=== PATIENT | male | born 1965 | race African-American/Black ===

== ENCOUNTER 2016-07-31 08:41 | Inpatient (IN) | payer OTHER ==
[2016-07-31 10:13] VITALS: BMI 22.1
--- NOTE | 2016-07-31 13:49 | HP ---
CIWA Score - CIWA Score Nausea/Vomitin-No Nausea/No Vomiting Muscle Tremors: 4-Moderate,w/Arms Extend Anxiety: 4-Mod. Anxious/Guarded Agitation: 3 Paroxysmal Sweats: 1-Minimal Palms Moist Orientation: 0-Oriented Tacttile Disturbances: 3-Moderate Itch/Numb/Burn Auditory Disturbances: 0-None Visual Disturbances: 0-None Headache: 0-None Present CIWA-Ar Total Score: 15 Admission ROS BHS - HPI Chief Complaint: DETOX TX FOR ALCOHOL DEPENDENCE Allergies/Adverse Reactions: Allergies Allergy/AdvReac Type Severity Reaction Status Date / Time No Known Allergies Allergy Unverified 07/31/16 10:52 History of Present Illness: 51 Y/O AA/MALE WITH A HX OF ALCOHOL AND CRACK DEPENDENCE SEEKING DETOX TX Exam Limitations: No Limitations - Ebola screening Have you traveled outside of the country in the last 21 days: No Have you had contact with anyone from an Ebola affected area: No Have you been sick,other than usual withdrawal symptoms: No Do you have a fever: No - Review of Systems Constitutional: Night Sweats, Changes in sleep, Unintentional Wgt. 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) Respiratory: reports: No Symptoms reported Cardiac: reports: Lightheadedness GI: reports: Diarrhea, Poor Fluid Intake : reports: Frequency Musculoskeletal: reports: Muscle Pain Integumentary: reports: Dryness Neuro: reports: Tremors, Dizziness Endocrine: reports: No Symptoms Reported Hematology: reports: No Symptoms Reported Psychiatric: reports: Orientated x3, Anxious Other Systems: Reviewed and Negative Patient History - Patient Medical History Hx Anemia: No Hx Asthma: No Hx Chronic Obstructive Pulmonary Disease (COPD): No Hx Cardiac Disorders: No Hx Hypertension: No Hx Hypercholesterolemia: No HX Cerebrovascular Accident: No Hx Seizures: No Hx Diabetes: No Hx Gastrointestinal Disorders: No Hx Genitourinary Disorders: No Hx Sexually Transmitted Disorders: No (DENIES) Hx Renal Disease (ESRD): No Hx Thyroid Disease: No Hx Human Immunodeficiency Virus (HIV): No (NEGATIVE HX) Hx Hepatitis C: No Hx Depression: No Hx Suicide Attempt: No (DENIES) Hx Bipolar Disorder: No Hx Schizophrenia: No - Patient Surgical History Past Surgical History: Yes Hx Neurologic Surgery: No Hx Cataract Extraction: No Hx Cardiac Surgery: No Hx Lung Surgery: No Hx Breast Surgery: No Hx Breast Biopsy: No Hx Abdominal Surgery: No Hx Appendectomy: No Hx Cholecystectomy: No Hx Genitourinary Surgery: No Hx Section: No Hx Orthopedic Surgery: No Hx Hysterectomy: No Other Surgical History: left eye sx at age 33 Anesthesia Reaction: No - PPD History Previous Implant?: Yes Documented Results: Negative w/o proof Implanted On Prior [facility] Admission?: Yes Date: 10/20/15 Results: 0 mm PPD to be Administered?: Yes - Reproductive History Patient is a Female of Child Bearing Age (11 -55 yrs old): No (MALE) - Smoking Cessation Smoking history: Current every day smoker Have you smoked in the past 12 months: Yes Aproximately how many cigarettes per day: 5 Cigars Per Day: 4 Hx Chewing Tobacco Use: No Initiated information on smoking cessation: Yes 'Breaking Loose' booklet given: 07/31/16 - Substance & Tx. History Hx Alcohol Use: Yes (BEER) Hx Substance Use: (CRACK) Substance Use Type: Alcohol, Cocaine - Substances Abused Alcohol Route: Oral Frequency: Daily Amount used: 5 40 OZ BEERS Age of first use: 21 Date of Last Use: 07/31/16 Crack Route: Smoking Frequency: Daily Amount used: $30 Age of first use: 19 Date of Last Use: 07/31/16 Family Disease History - Family Disease History Family Disease History: CA: Father (PROSTATE) Admission Physical Exam BHS - Vital Signs Vital Signs: Vital Signs - 24 hr 07/31/16 10:10 Temperature 97.0 F L Pulse Rate 103 H Respiratory 18 Rate Blood Pressure 109/70 - Physical General Appearance: Yes: Moderate Distress, Alcohol on Breath, Irritable, Anxious HEENTM: Yes: EOMI, Normocephalic, MARCELL (RIGHT EYE), Pharynx Normal, Excessive Drooling, Other (CHRONIC TRUAMATIC LEFT EYE. BLIND.) Respiratory: Yes: Chest Non-Tender, Lungs Clear, Normal Breath Sounds, No Respiratory Distress Neck: Yes: Supple, Trachea in good position Breast: Yes: Breast Exam Deferred Cardiology: Yes: Regular Rhythm, Regular Rate, S1, S2 Abdominal: Yes: Normal Bowel Sounds, Non Tender, Soft Genitourinary: Yes: Other (N/C) Back: Yes: Within Normal Limits Musculoskeletal: Yes: full range of Motion, Gait Steady Extremities: Yes: Normal Range of Motion, Non-Tender Neurological: Yes: industrial engineering technician II-XII NML intact, Fully Oriented, Alert Integumentary: Yes: Dry, Warm Lymphatic: Yes: Within Normal Limits - Diagnostic (1) Alcohol dependence with uncomplicated withdrawal Current Visit: Yes Status: Acute (2) Cocaine dependence, uncomplicated Current Visit: Yes Status: Acute (3) 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
[2016-07-31] MEDS ORDERED: MAG HYDROX/AL HYDROX/SIMETH 30 ML UNIT-DOSE CUP PO PRN (14:00)
[2016-07-31] MEDS ORDERED: MAGNESIUM HYDROX 2400MG/30ML ORAL SUSPENSION 30 ML CUP PO PRN (14:00)
[2016-07-31] MEDS ORDERED: chlordiazePOXIDE HCL 25 MG CAPSULE PO PRN (14:00)
[2016-07-31] MEDS ORDERED: MENTHOL/PHENOL 1 EACH UD MM PRN (14:00)
[2016-07-31] MEDS ORDERED: LOPERAMIDE HCL 2 MG CAPSULE PO PRN (14:00)
[2016-07-31] MEDS ORDERED: hydrOXYzine PAMOATE 25 MG CAPSULE (FP) PO PRN (14:00)
[2016-07-31] MEDS ORDERED: MAGNESIUM CITRATE 300 ML BOTTLE PO PRN (14:00)
[2016-07-31] MEDS ORDERED: NICOTINE POLACRILEX 2 MG GUM BUC PRN (14:00)
[2016-07-31] MEDS ORDERED: IBUPROFEN 400 MG TABLET (FP) PO PRN (14:00)
[2016-07-31] MEDS ORDERED: ACETAMINOPHEN 325 MG TABLET (FP) PO PRN (14:00)
[2016-07-31] MEDS ORDERED: guaiFENesin/D-METHORPHAN HB 10 ML UNIT-DOSE CUPS PO PRN (14:00)
[2016-07-31] MEDS ORDERED: P-EPHED 60MG/TRIPROLIDI 2.5MG TABLET PO PRN (14:00)
[2016-07-31] MEDS ORDERED: chlordiazePOXIDE HCL 25 MG CAPSULE PO ONE (14:08)
[2016-07-31] MEDS: NICOTINE 14 MG/24 HOURS TOPICAL PATCH TD SCH (14:43)
[2016-07-31] MEDS: chlordiazePOXIDE HCL 25 MG CAPSULE PO SCH ×2 (17:24→22:18)
[2016-07-31 17:31] LABS: URINE APPEARANCE CLEAR; URINE BILIRUBIN NEGATIVE (NEGATIVE); URINE COLOR YELLOW; URINE GLUCOSE (UA) NEGATIVE (NEGATIVE); URINE KETONE NEGATIVE (NEGATIVE); URINE NITRITE NEGATIVE (NEGATIVE); URINE PROTEIN NEGATIVE (NEGATIVE); URINE UROBILINOGEN NEGATIVE E.U./dl (0.2-1.0)
[2016-07-31 17:34] LABS: URINE BLOOD 1+ (NEGATIVE); URINE LEUK ESTERASE 2+ (NEGATIVE)
[2016-07-31 17:35] LABS: URINE HYALINE CAST 6 /lpf; URINE MUCUS FEW; URINE RBC 3 /hpf (0-3); URINE WBC 11 /hpf (3-5)
[2016-07-31] MEDS: ARTIFICIAL TEARS (POLYVINYL ALCOHOL 1.4%) OPTH DROPS OU SCH (22:17)
[2016-07-31] MEDS: THIAMINE HCL 100 MG TABLET (FP) PO SCH (22:18)
[2016-07-31] MEDS: diphenhydrAMINE HCL 50 MG CAPSULE PO PRN (22:18)
[2016-08-01] MEDS: chlordiazePOXIDE HCL 25 MG CAPSULE PO SCH ×4 (05:32→22:15)
[2016-08-01] MEDS: ARTIFICIAL TEARS (POLYVINYL ALCOHOL 1.4%) OPTH DROPS OU SCH ×3 (05:33→22:14)
[2016-08-01 09:53] LABS: MCHC 32.3 g/dl (32.0-35.9); MEAN CELL VOLUME 95.8 fl (80-96); MEAN PLT VOLUME 8.5 fl (7.5-11.1); PLATELET COUNT 235 K/MM3 (134-434); RDW 15.2 % (11.9-15.9); WHITE BLOOD COUNT 3.5 K/mm3 (4.0-10.0)
--- NOTE | 2016-08-01 10:02 | PN ---
S CIWA - CIWA Score Nausea/Vomitin Muscle Tremors: 4-Moderate,w/Arms Extend Anxiety: 4-Mod. Anxious/Guarded Agitation: 3 Paroxysmal Sweats: 3 Orientation: 0-Oriented Tacttile Disturbances: 0-None Auditory Disturbances: 0-None Visual Disturbances: 0-None Headache: 0-None Present CIWA-Ar Total Score: 16 BHS Progress Note (SOAP) Subjective: Anxiety,tremors,sweating,interrupted sleep,restless. Objective: 08/01/16 09:56 Vital Signs - 8 hr 08/01/16 08/01/16 08/01/16 03:30 06:12 09:17 Temperature 97.2 F L 96.7 F L Pulse Rate 80 76 Respiratory 18 18 18 Rate Blood Pressure 128/94 134/92 Laboratory Last Values Urine Color Yellow 07/31/16 15:00 Urine Appearance Clear 07/31/16 15:00 Urine pH 5.0 (5.0-8.0) 07/31/16 15:00 Ur Specific [place] >= 1.030 (1.005-1.025) H 07/31/16 15:00 Urine Protein Negative (NEGATIVE) 07/31/16 15:00 Urine Glucose (UA) Negative (NEGATIVE) 07/31/16 15:00 Urine Ketones Negative (NEGATIVE) 07/31/16 15:00 Urine Blood 1+ (NEGATIVE) H 07/31/16 15:00 Urine Nitrite Negative (NEGATIVE) 07/31/16 15:00 Urine Bilirubin Negative (NEGATIVE) 07/31/16 15:00 Urine Urobilinogen Negative E.U./dl (0.2-1.0) 07/31/16 15:00 Ur Leukocyte Esterase 2+ (NEGATIVE) H 07/31/16 15:00 Urine RBC 3 /hpf (0-3) 07/31/16 15:00 Urine WBC 11 /hpf (3-5) 07/31/16 15:00 Ur Epithelial Cells Rare /hpf (FEW) 07/31/16 15:00 Hyaline Casts 6 /lpf 07/31/16 15:00 Urine Mucus Few 07/31/16 15:00 u/a noted,we'll repeat Left eye with yellowish d/c,inflammation & redness of palpebral conjunctiva Assessment: 08/01/16 09:57 Withdrawal sx. Acute Conjunctivitis OS Plan: Continue detox tobrex ophth. helena qid maxitrol hs
[2016-08-01] MEDS: NICOTINE 14 MG/24 HOURS TOPICAL PATCH TD SCH (10:23)
[2016-08-01] MEDS: PRENATAL VITAMINS W/ FOLIC ACID TABLET (FP) PO SCH (10:23)
[2016-08-01 10:42] LABS: ALBUMIN 4.3 g/dl (3.4-5.0); ALK PHOS 85 U/L (45-117); ANION GAP 12 (8-16); BILIRUBIN,TOTAL 0.3 mg/dL (0.2-1.0); CALCIUM 9.6 mg/dL (8.5-10.1); CO2 24 mmol/L (21-32); COCKROFT - GAULT 91.97; CREATININE 0.9 mg/dL (0.7-1.3); GLUCOSE,RANDOM 79 mg/dL (74-106); SGOT/AST 27 U/L (15-37); SGPT/ALT 25 U/L (12-78); TOT PROT 8.3 g/dl (6.4-8.2)
[2016-08-01] MEDS: TOBRAMYCIN 0.3% OPHTH SOLN 5 ML BOTTLE OS SCH ×4 (11:00→22:15)
--- NOTE | 2016-08-01 11:00 | EKG ---
Test Reason : Blood Pressure : / mmHG Vent. Rate : 084 BPM Atrial Rate : 084 BPM P-R Int : 158 ms QRS Dur : 096 ms QT Int : 364 ms P-R-T Axes : 069 071 066 degrees QTc Int : 430 ms NORMAL SINUS RHYTHM NONSPECIFIC T WAVE ABNORMALITY ABNORMAL ECG NO PREVIOUS ECGS AVAILABLE Confirmed by ARJUN ORDOÑEZ, TIAN ([id number]) on 08/01/2016 10:59:51 AM Referred By: Mushtaq Horner Confirmed By:TIAN DÍAZ MD
[2016-08-01] MEDS: THIAMINE HCL 100 MG TABLET (FP) PO SCH (22:14)
[2016-08-01] MEDS: NEO/POLYMYX B SULF/DEXAMETH OPHTHALMIC OINTMENT 3.5 GM OS SCH (22:15)
[2016-08-01] MEDS: diphenhydrAMINE HCL 50 MG CAPSULE PO PRN (22:15)
[2016-08-02] MEDS: diphenhydrAMINE HCL 50 MG CAPSULE PO PRN ×2 (00:54→22:25)
[2016-08-02] MEDS: chlordiazePOXIDE HCL 25 MG CAPSULE PO SCH ×2 (05:39→10:27)
[2016-08-02] MEDS: ARTIFICIAL TEARS (POLYVINYL ALCOHOL 1.4%) OPTH DROPS OU SCH ×3 (05:39→22:24)
[2016-08-02] MEDS: TOBRAMYCIN 0.3% OPHTH SOLN 5 ML BOTTLE OS SCH ×4 (10:27→22:24)
[2016-08-02] MEDS: PRENATAL VITAMINS W/ FOLIC ACID TABLET (FP) PO SCH (10:27)
[2016-08-02] MEDS: NICOTINE 14 MG/24 HOURS TOPICAL PATCH TD SCH (10:28)
--- NOTE | 2016-08-02 11:52 | PN ---
[facility] CIWA - CIWA Score Nausea/Vomitin-Mild Nausea/No Vomiting Muscle Tremors: 4-Moderate,w/Arms Extend Anxiety: 2 Agitation: 1-Slight > Activity Paroxysmal Sweats: No Perspiration Orientation: 0-Oriented Tacttile Disturbances: 1-Very Mild Itch/Numbness Auditory Disturbances: 2-Mild Harshness/Frighten Visual Disturbances: 3-Moderate Sensitivity Headache: 0-None Present CIWA-Ar Total Score: 14 S Progress Note (SOAP) Subjective: Body Aches, Tremors, Fatigue, Interrupted sleep. Objective: PT. A & O X 3. NO ACUTE DISTRESS. 08/02/16 11:48 Vital Signs Temperature 96.8 F L 08/02/16 09:20 Pulse Rate 79 08/02/16 09:20 Respiratory Rate 18 08/02/16 09:20 Blood Pressure 121/83 08/02/16 09:20 O2 Sat by Pulse Oximetry (%) Laboratory Tests 07/31/16 08/01/16 08/01/16 15:00 06:00 06:00 WBC 3.5 L D RBC 4.43 Hgb 13.7 D Hct 42.4 D MCV 95.8 MCHC 32.3 RDW 15.2 Plt Count 235 D MPV 8.5 Sodium 138 Potassium 3.6 D Chloride 102 Carbon Dioxide 24 Anion Gap 12 BUN 11 D Creatinine 0.9 Creat Clearance w eGFR > 60 Random Glucose 79 Calcium 9.6 Total Bilirubin 0.3 D AST 27 D ALT 25 Alkaline Phosphatase 85 Total Protein 8.3 H Albumin 4.3 Urine Color Yellow Urine Appearance Clear Urine pH 5.0 Ur Specific [place] >= 1.030 H Urine Protein Negative Urine Glucose (UA) Negative Urine Ketones Negative Urine Blood 1+ H Urine Nitrite Negative Urine Bilirubin Negative Urine Urobilinogen Negative Ur Leukocyte Esterase 2+ H Urine RBC 3 Urine WBC 11 Ur Epithelial Cells Rare Hyaline Casts 6 Urine Mucus Few RPR Titer 08/01/16 06:00 WBC RBC Hgb Hct MCV MCHC RDW Plt Count MPV Sodium Potassium Chloride Carbon Dioxide Anion Gap BUN Creatinine Creat Clearance w eGFR Random Glucose Calcium Total Bilirubin AST ALT Alkaline Phosphatase Total Protein Albumin Urine Color Urine Appearance Urine pH Ur Specific [place] Urine Protein Urine Glucose (UA) Urine Ketones Urine Blood Urine Nitrite Urine Bilirubin Urine Urobilinogen Ur Leukocyte Esterase Urine RBC Urine WBC Ur Epithelial Cells Hyaline Casts Urine Mucus RPR Titer Nonreactive LABS NOTED. Assessment: 08/02/16 11:49 WITHDRAWAL SYMPTOMS. Plan: CONTINUE DETOX. REPEAT UA FOR ABNORMAL ADMISSION UA LEVELS.
[2016-08-02] MEDS: chlordiazePOXIDE 5 MG CAPSULE PO SCH ×2 (17:15→22:24)
[2016-08-02 17:51] LABS: URINE APPEARANCE CLEAR; URINE BILIRUBIN NEGATIVE (NEGATIVE); URINE BLOOD NEGATIVE (NEGATIVE); URINE COLOR STRAW; URINE GLUCOSE (UA) NEGATIVE (NEGATIVE); URINE KETONE NEGATIVE (NEGATIVE); URINE NITRITE NEGATIVE (NEGATIVE); URINE PROTEIN NEGATIVE (NEGATIVE); URINE UROBILINOGEN NEGATIVE E.U./dl (0.2-1.0)
[2016-08-02 17:52] LABS: URINE LEUK ESTERASE TRACE (NEGATIVE)
[2016-08-02 17:56] LABS: URINE MUCUS RARE; URINE RBC <1 /hpf (0-3); URINE WBC 4 /hpf (3-5)
[2016-08-02] MEDS: NEO/POLYMYX B SULF/DEXAMETH OPHTHALMIC OINTMENT 3.5 GM OS SCH (22:24)
[2016-08-02] MEDS: THIAMINE HCL 100 MG TABLET (FP) PO SCH (22:24)
[2016-08-03] MEDS: chlordiazePOXIDE 5 MG CAPSULE PO SCH ×2 (05:30→10:37)
[2016-08-03] MEDS: ARTIFICIAL TEARS (POLYVINYL ALCOHOL 1.4%) OPTH DROPS OU SCH ×3 (05:30→22:18)
[2016-08-03] MEDS ORDERED: BACITRACIN 30 GM TUBE TOPICAL OINTMENT TP SCH (10:00)
[2016-08-03] MEDS: PRENATAL VITAMINS W/ FOLIC ACID TABLET (FP) PO SCH (10:37)
[2016-08-03] MEDS: TOBRAMYCIN 0.3% OPHTH SOLN 5 ML BOTTLE OS SCH ×4 (10:38→22:18)
[2016-08-03] MEDS: NICOTINE 14 MG/24 HOURS TOPICAL PATCH TD SCH (10:39)
[2016-08-03] MEDS: BACITRACIN 0.9 GM PACKET TP SCH ×2 (13:10→22:18)
--- NOTE | 2016-08-03 14:26 | PN ---
BHS Progress Note (SOAP) Subjective: Tremors, Fatigue. Objective: PT. A & O X 3. NO ACUTE DISTRESS. 08/03/16 14:24 Vital Signs Temperature 97.1 F L 08/03/16 13:11 Pulse Rate 86 08/03/16 13:11 Respiratory Rate 18 08/03/16 13:11 Blood Pressure 113/82 08/03/16 13:11 O2 Sat by Pulse Oximetry (%) Laboratory Tests 07/31/16 08/01/16 08/01/16 15:00 06:00 06:00 WBC 3.5 L D RBC 4.43 Hgb 13.7 D Hct 42.4 D MCV 95.8 MCHC 32.3 RDW 15.2 Plt Count 235 D MPV 8.5 Sodium 138 Potassium 3.6 D Chloride 102 Carbon Dioxide 24 Anion Gap 12 BUN 11 D Creatinine 0.9 Creat Clearance w eGFR > 60 Random Glucose 79 Calcium 9.6 Total Bilirubin 0.3 D AST 27 D ALT 25 Alkaline Phosphatase 85 Total Protein 8.3 H Albumin 4.3 Urine Color Yellow Urine Appearance Clear Urine pH 5.0 Ur Specific [place] >= 1.030 H Urine Protein Negative Urine Glucose (UA) Negative Urine Ketones Negative Urine Blood 1+ H Urine Nitrite Negative Urine Bilirubin Negative Urine Urobilinogen Negative Ur Leukocyte Esterase 2+ H Urine RBC 3 Urine WBC 11 Ur Epithelial Cells Rare Hyaline Casts 6 Urine Mucus Few RPR Titer 08/01/16 08/02/16 06:00 17:32 WBC RBC Hgb Hct MCV MCHC RDW Plt Count MPV Sodium Potassium Chloride Carbon Dioxide Anion Gap BUN Creatinine Creat Clearance w eGFR Random Glucose Calcium Total Bilirubin AST ALT Alkaline Phosphatase Total Protein Albumin Urine Color Straw Urine Appearance Clear Urine pH 7.0 D Ur Specific [place] 1.020 Urine Protein Negative Urine Glucose (UA) Negative Urine Ketones Negative Urine Blood Negative Urine Nitrite Negative Urine Bilirubin Negative Urine Urobilinogen Negative Ur Leukocyte Esterase Trace H D Urine RBC <1 Urine WBC 4 Ur Epithelial Cells Rare Hyaline Casts Urine Mucus Rare RPR Titer Nonreactive LABS NOTED. RESULTS OF REPEAT UA NOTED. 08/03/16 14:26 Assessment: 08/03/16 14:25 WITHDRAWAL SYMPTOMS. Plan: CONTINUE DETOX. ADVISED PATIENT TO FOLLOW-UP WITH MUSIC WORKER AFTER DISCHARGE FROM DETOX FOR GENERAL MEDICAL ASSESSMENT AND FOR LOW ADMISSION WBC LEVEL.
[2016-08-03] MEDS: chlordiazePOXIDE HCL 10 MG CAPSULE PO SCH ×2 (17:22→22:19)
[2016-08-03] MEDS: NEO/POLYMYX B SULF/DEXAMETH OPHTHALMIC OINTMENT 3.5 GM OS SCH (22:18)
[2016-08-03] MEDS: THIAMINE HCL 100 MG TABLET (FP) PO SCH (22:18)
[2016-08-03] MEDS: diphenhydrAMINE HCL 50 MG CAPSULE PO PRN (22:19)
[2016-08-04] MEDS: chlordiazePOXIDE HCL 10 MG CAPSULE PO SCH (05:24)
[2016-08-04 06:11] VITALS: BP 112/77; PULSE 87; TEMP 97.5
[2016-08-04] MEDS: ARTIFICIAL TEARS (POLYVINYL ALCOHOL 1.4%) OPTH DROPS OU SCH (07:19)
--- NOTE | 2016-08-04 11:21 | DS ---
[facility] Detox Discharge Summary Admission Date: 07/31/16 Discharge Date: 08/04/16 - History Present History: Alcohol Dependence, Cocaine Dependence Additional Comments: ADVISED PATIENT TO FOLLOW-UP WITH FULL STACK SOFTWARE ENGINEER AFTER DISCHARGE FROM DETOX FOR GENERAL MEDICAL ASSESSMENT. Pertinent Past History: Blindness in Left eye. - Physical Exam Results Vital Signs: Vital Signs Temperature 97.5 F L 08/04/16 06:10 Pulse Rate 87 08/04/16 06:10 Respiratory Rate 18 08/04/16 06:10 Blood Pressure 112/77 08/04/16 06:10 O2 Sat by Pulse Oximetry (%) Pertinent Admission Physical Exam Findings: WITHDRAWAL SYMPTOMS. Laboratory Tests 07/31/16 08/01/16 08/01/16 15:00 06:00 06:00 WBC 3.5 L D RBC 4.43 Hgb 13.7 D Hct 42.4 D MCV 95.8 MCHC 32.3 RDW 15.2 Plt Count 235 D MPV 8.5 Sodium 138 Potassium 3.6 D Chloride 102 Carbon Dioxide 24 Anion Gap 12 BUN 11 D Creatinine 0.9 Creat Clearance w eGFR > 60 Random Glucose 79 Calcium 9.6 Total Bilirubin 0.3 D AST 27 D ALT 25 Alkaline Phosphatase 85 Total Protein 8.3 H Albumin 4.3 Urine Color Yellow Urine Appearance Clear Urine pH 5.0 Ur Specific [place] >= 1.030 H Urine Protein Negative Urine Glucose (UA) Negative Urine Ketones Negative Urine Blood 1+ H Urine Nitrite Negative Urine Bilirubin Negative Urine Urobilinogen Negative Ur Leukocyte Esterase 2+ H Urine RBC 3 Urine WBC 11 Ur Epithelial Cells Rare Hyaline Casts 6 Urine Mucus Few RPR Titer 08/01/16 08/02/16 06:00 17:32 WBC RBC Hgb Hct MCV MCHC RDW Plt Count MPV Sodium Potassium Chloride Carbon Dioxide Anion Gap BUN Creatinine Creat Clearance w eGFR Random Glucose Calcium Total Bilirubin AST ALT Alkaline Phosphatase Total Protein Albumin Urine Color Straw Urine Appearance Clear Urine pH 7.0 D Ur Specific [place] 1.020 Urine Protein Negative Urine Glucose (UA) Negative Urine Ketones Negative Urine Blood Negative Urine Nitrite Negative Urine Bilirubin Negative Urine Urobilinogen Negative Ur Leukocyte Esterase Trace H D Urine RBC <1 Urine WBC 4 Ur Epithelial Cells Rare Hyaline Casts Urine Mucus Rare RPR Titer Nonreactive LABS NOTED. - Treatment Hospital Course: Detox Protocol Followed, Detoxed Safely, Responded well, Discharged Condition Good Patient has Accepted a Rehab Referral to: PATIENT ELECITNG TO GO HOME. 12-STEP/ AA/NA OUTPATIENT PROGRAMS RECOMMENDED. - Medication Discharge Medications: Ambulatory Orders Dextran 70/Hypromellose [Artificial Tears Eye Drops] 1 drop OP QID 12/07/15 - Diagnosis (1) Alcohol dependence with uncomplicated withdrawal Status: Acute (2) Cocaine dependence, uncomplicated Status: Acute (3) Nicotine dependence Status: Chronic Qualifiers: Nicotine product type: cigarettes Substance use status: in withdrawal Qualified Code(s): F17.213 - Nicotine dependence, cigarettes, with withdrawal (4) Blindness of left eye Status: Chronic - AMA Did Patient Leave Against Medical Advice: No
== END 2016-08-04 09:20 | disposition home or self-care (01) | DRG 774 ==
LOC: YASAS 08:41 → Y3N 13:46
PROVIDERS: ADMIT Internal Medicine; ATTEND Internal Medicine
PROC: HZ2ZZZZ Detoxification Services for Substance Abuse Treatment (ICD-10-PCS; principal; 2016-07-31)
DX: F10.230 Alcohol dependence with withdrawal, uncomplicated (principal); F14.20 Cocaine dependence, uncomplicated; F17.213 Nicotine dependence, cigarettes, with withdrawal; H54.42 Blindness, left eye, normal vision right eye; H10.32 Unspecified acute conjunctivitis, left eye
CPT/HCPCS: 36415; 80053; 81003; 81015; 85027; 86593; 93005; 93010

== ENCOUNTER 2020-10-05 09:21 | Inpatient (IN) | payer OTHER ==
[2020-10-05 09:51] VITALS: BMI 22.3
[2020-10-05] MEDS ORDERED: ACETAMINOPHEN 325 MG TABLET (FP) PO PRN ×2 (11:41)
[2020-10-05] MEDS ORDERED: MENTHOL/PHENOL 1 EACH UD MM PRN (11:41)
[2020-10-05] MEDS ORDERED: ONDANSETRON *ODT* 4 MG TABLET SL PRN (11:41)
[2020-10-05] MEDS ORDERED: BISMUTH SUBSALICYLATE 262 MG/15 ML BTL PO PRN (11:41)
[2020-10-05] MEDS ORDERED: MAGNESIUM HYDROX 2400MG/30ML ORAL SUSPENSION 30 ML CUP PO PRN (11:41)
[2020-10-05] MEDS ORDERED: IBUPROFEN 400 MG TABLET (FP) PO PRN (11:41)
[2020-10-05] MEDS ORDERED: METHOCARBAMOL 500 MG TABLET PO PRN (11:41)
[2020-10-05] MEDS ORDERED: MAG HYDROX/AL HYDROX/SIMETH 30 ML UNIT-DOSE CUP PO PRN (11:41)
[2020-10-05] MEDS ORDERED: NICOTINE 10 MG CARTRIDGE (INHALER) IH PRN (11:41)
[2020-10-05] MEDS ORDERED: MAGNESIUM CITRATE 300 ML BOTTLE PO PRN (11:41)
[2020-10-05] MEDS: hydrOXYzine PAMOATE 25 MG CAPSULE (FP) PO SCH ×4 (14:34→22:17)
[2020-10-05] MEDS: PRENATAL VITAMINS W/ FOLIC ACID TABLET (FP) PO SCH ×2 (14:34→14:47)
[2020-10-05] MEDS: ARTIFICIAL TEARS (POLYVINYL ALCOHOL) OPTH DROPS OU SCH ×3 (14:39→22:17)
[2020-10-05 15:28] LABS: ALBUMIN 3.6 g/dl (3.4-5.0); BLOOD UREA NITROGEN 18.7 mg/dL (7-18); CALCIUM 9.3 mg/dL (8.5-10.1)
[2020-10-05 15:31] LABS: CREATININE 0.9 mg/dL (0.55-1.3)
[2020-10-05 15:33] LABS: BILIRUBIN,TOTAL 0.2 mg/dL (0.2-1); TOT PROT 7.3 g/dl (6.4-8.2)
[2020-10-05 15:39] LABS: HEMATOCRIT 37.5 % (35.4-49); HEMOGLOBIN 12.7 GM/dL (11.7-16.9); MCH 32.3 pg (25.7-33.7); MCHC 33.8 g/dl (32.0-35.9); MEAN CELL VOLUME 95.6 fl (80-96); MEAN PLT VOLUME 8.3 fl (7.5-11.1); PLATELET COUNT 255 10^3/uL (134-434); RBC 3.92 M/mm3 (4.00-5.60); RDW 15.3 % (11.9-15.9); WHITE BLOOD COUNT 4.2 K/mm3 (4.0-10.0)
[2020-10-05] MEDS: THIAMINE HCL 100 MG TABLET (FP) PO SCH (22:17)
[2020-10-05] MEDS: MELATONIN 5 MG TABLETS PO SCH (22:17)
[2020-10-06] MEDS: hydrOXYzine PAMOATE 25 MG CAPSULE (FP) PO SCH ×5 (05:04→22:16)
[2020-10-06] MEDS ORDERED: diazePAM 5 MG TABLET PO PRN (09:46)
[2020-10-06] MEDS: ARTIFICIAL TEARS (POLYVINYL ALCOHOL) OPTH DROPS OU SCH ×4 (10:13→22:15)
[2020-10-06] MEDS: PRENATAL VITAMINS W/ FOLIC ACID TABLET (FP) PO SCH (10:13)
[2020-10-06] MEDS: diazePAM 5 MG TABLET PO SCH ×3 (10:14→22:16)
[2020-10-06] MEDS: THIAMINE HCL 100 MG TABLET (FP) PO SCH (22:16)
[2020-10-06] MEDS: MELATONIN 5 MG TABLETS PO SCH (22:16)
[2020-10-07] MEDS: diazePAM 5 MG TABLET PO SCH ×4 (05:54→22:17)
[2020-10-07] MEDS: hydrOXYzine PAMOATE 25 MG CAPSULE (FP) PO SCH ×5 (05:54→22:17)
[2020-10-07] MEDS: PRENATAL VITAMINS W/ FOLIC ACID TABLET (FP) PO SCH (10:40)
[2020-10-07] MEDS: ARTIFICIAL TEARS (POLYVINYL ALCOHOL) OPTH DROPS OU SCH ×4 (10:41→22:16)
[2020-10-07] MEDS: THIAMINE HCL 100 MG TABLET (FP) PO SCH (22:17)
[2020-10-07] MEDS: MELATONIN 5 MG TABLETS PO SCH (22:17)
[2020-10-08] MEDS: hydrOXYzine PAMOATE 25 MG CAPSULE (FP) PO SCH ×5 (05:13→22:15)
[2020-10-08] MEDS: diazePAM 5 MG TABLET PO SCH ×3 (05:14→22:15)
[2020-10-08] MEDS: PRENATAL VITAMINS W/ FOLIC ACID TABLET (FP) PO SCH (10:53)
[2020-10-08] MEDS: ARTIFICIAL TEARS (POLYVINYL ALCOHOL) OPTH DROPS OU SCH ×4 (10:54→22:15)
[2020-10-08] MEDS: THIAMINE HCL 100 MG TABLET (FP) PO SCH (22:15)
[2020-10-08] MEDS: MELATONIN 5 MG TABLETS PO SCH (22:16)
[2020-10-09] MEDS: hydrOXYzine PAMOATE 25 MG CAPSULE (FP) PO SCH ×5 (05:25→22:07)
[2020-10-09] MEDS: diazePAM 5 MG TABLET PO SCH ×2 (05:25→18:03)
[2020-10-09] MEDS: ARTIFICIAL TEARS (POLYVINYL ALCOHOL) OPTH DROPS OU SCH ×4 (11:01→23:25)
[2020-10-09] MEDS: PRENATAL VITAMINS W/ FOLIC ACID TABLET (FP) PO SCH (11:01)
[2020-10-09] MEDS: THIAMINE HCL 100 MG TABLET (FP) PO SCH (22:07)
[2020-10-09] MEDS: MELATONIN 5 MG TABLETS PO SCH (22:08)
[2020-10-10] MEDS: hydrOXYzine PAMOATE 25 MG CAPSULE (FP) PO SCH ×2 (05:27→10:34)
[2020-10-10] MEDS ORDERED: diazePAM 5 MG TABLET PO ONE (06:00)
[2020-10-10 09:41] VITALS: TEMP 97.3
[2020-10-10] MEDS: PRENATAL VITAMINS W/ FOLIC ACID TABLET (FP) PO SCH (10:33)
[2020-10-10] MEDS: ARTIFICIAL TEARS (POLYVINYL ALCOHOL) OPTH DROPS OU SCH (10:34)
[2020-10-10 13:49] VITALS: BP 115/77; PULSE 96
== END 2020-10-10 13:50 | disposition home or self-care (01) | DRG 774 ==
LOC: YASAS 09:21 → UNDOADMIN 12:04 → Y3N 12:04
PROVIDERS: ADMIT Allergy & Immunology; ATTEND Allergy & Immunology
PROC: HZ2ZZZZ Detoxification Services for Substance Abuse Treatment (ICD-10-PCS; principal; 2020-10-05)
DX: F10.230 Alcohol dependence with withdrawal, uncomplicated (principal); F14.20 Cocaine dependence, uncomplicated; F17.213 Nicotine dependence, cigarettes, with withdrawal; H54.62 Unqualified visual loss, left eye, normal vision right eye
CPT/HCPCS: 36415; 80053; 85027; 86780; C9803; U0003; U0005

== ENCOUNTER 2020-11-11 12:49 | Inpatient (IN) | payer OTHER ==
[2020-11-11 15:59] VITALS: BMI 22.5
[2020-11-11] MEDS ORDERED: MAG HYDROX/AL HYDROX/SIMETH 30 ML UNIT-DOSE CUP PO PRN (17:37)
[2020-11-11] MEDS ORDERED: BISMUTH SUBSALICYLATE 524 MG/30 ML PO PRN (17:37)
[2020-11-11] MEDS ORDERED: NICOTINE 10 MG CARTRIDGE (INHALER) IH PRN (17:37)
[2020-11-11] MEDS ORDERED: METHOCARBAMOL 500 MG TABLET PO PRN (17:37)
[2020-11-11] MEDS ORDERED: MAGNESIUM HYDROX 2400MG/30ML ORAL SUSPENSION 30 ML CUP PO PRN (17:37)
[2020-11-11] MEDS ORDERED: MAGNESIUM CITRATE 300 ML BOTTLE PO PRN (17:37)
[2020-11-11] MEDS ORDERED: MENTHOL/PHENOL 1 EACH UD MM PRN (17:37)
[2020-11-11] MEDS ORDERED: ONDANSETRON *ODT* 4 MG TABLET SL PRN (17:37)
[2020-11-11] MEDS ORDERED: hydrOXYzine PAMOATE 25 MG CAPSULE (FP) PO PRN (17:37)
[2020-11-11] MEDS ORDERED: ACETAMINOPHEN 325 MG TABLET (FP) PO PRN ×2 (17:37)
[2020-11-11] MEDS: IBUPROFEN 400 MG TABLET (FP) PO PRN (19:33)
[2020-11-11] MEDS: diazePAM 5 MG TABLET PO PRN (19:33)
[2020-11-11] MEDS: THIAMINE HCL 100 MG TABLET (FP) PO SCH (22:42)
[2020-11-11] MEDS: diazePAM 5 MG TABLET PO SCH (22:42)
[2020-11-11] MEDS: MELATONIN 5 MG TABLETS PO SCH (22:42)
[2020-11-12] MEDS: diazePAM 5 MG TABLET PO SCH ×4 (05:42→22:32)
[2020-11-12 10:11] LABS: HEMATOCRIT 35.7 % (35.4-49); MCH 31.8 pg (25.7-33.7); MCHC 33.5 g/dl (32.0-35.9); MEAN CELL VOLUME 94.9 fl (80-96); MEAN PLT VOLUME 7.6 fl (7.5-11.1); PLATELET COUNT 362 10^3/uL (134-434); RBC 3.76 M/mm3 (4.00-5.60); WHITE BLOOD COUNT 5.7 K/mm3 (4.0-10.0)
[2020-11-12 10:17] LABS: ALBUMIN 3.1 g/dl (3.4-5.0); CALCIUM 9.1 mg/dL (8.5-10.1)
[2020-11-12 10:18] LABS: BLOOD UREA NITROGEN 12.6 mg/dL (7-18)
[2020-11-12 10:22] LABS: TOT PROT 7.4 g/dl (6.4-8.2)
[2020-11-12 10:24] LABS: CREATININE 0.7 mg/dL (0.55-1.3)
[2020-11-12 10:30] LABS: BILIRUBIN,TOTAL 0.6 mg/dL (0.2-1)
[2020-11-12] MEDS: ARTIFICIAL TEARS (POLYVINYL ALCOHOL) OPTH DROPS OU PRN (10:43)
[2020-11-12] MEDS: PRENATAL VITAMINS W/ FOLIC ACID TABLET (FP) PO SCH (10:44)
[2020-11-12] MEDS: NICOTINE 7 MG/24 HOURS TOPICAL PATCH TD SCH (11:01)
[2020-11-12] MEDS: THIAMINE HCL 100 MG TABLET (FP) PO SCH (22:32)
[2020-11-12] MEDS: MELATONIN 5 MG TABLETS PO SCH (22:33)
[2020-11-13] MEDS: diazePAM 5 MG TABLET PO SCH ×3 (05:07→23:18)
[2020-11-13] MEDS: IBUPROFEN 400 MG TABLET (FP) PO PRN (05:08)
[2020-11-13] MEDS: PRENATAL VITAMINS W/ FOLIC ACID TABLET (FP) PO SCH (10:48)
[2020-11-13] MEDS: ARTIFICIAL TEARS (POLYVINYL ALCOHOL) OPTH DROPS OU PRN (10:49)
[2020-11-13] MEDS: NICOTINE 7 MG/24 HOURS TOPICAL PATCH TD SCH (11:21)
[2020-11-13] MEDS: THIAMINE HCL 100 MG TABLET (FP) PO SCH (22:29)
[2020-11-13] MEDS: diazePAM 5 MG TABLET PO PRN (22:29)
[2020-11-13] MEDS: MELATONIN 5 MG TABLETS PO SCH (22:31)
[2020-11-14] MEDS: diazePAM 5 MG TABLET PO SCH ×2 (06:07→18:25)
[2020-11-14] MEDS: PRENATAL VITAMINS W/ FOLIC ACID TABLET (FP) PO SCH (11:04)
[2020-11-14] MEDS: NICOTINE 7 MG/24 HOURS TOPICAL PATCH TD SCH (11:04)
[2020-11-14] MEDS: MELATONIN 5 MG TABLETS PO SCH (22:51)
[2020-11-14] MEDS: THIAMINE HCL 100 MG TABLET (FP) PO SCH (22:51)
[2020-11-15] MEDS ORDERED: diazePAM 5 MG TABLET PO ONE (06:00)
[2020-11-15 09:02] VITALS: BP 145/93; PULSE 111; TEMP 98
[2020-11-15] MEDS: NICOTINE 7 MG/24 HOURS TOPICAL PATCH TD SCH (10:22)
[2020-11-15] MEDS: PRENATAL VITAMINS W/ FOLIC ACID TABLET (FP) PO SCH (10:22)
== END 2020-11-15 12:05 | disposition home or self-care (01) | DRG 774 ==
LOC: YASAS 12:49 → Y6N 18:14
PROVIDERS: ADMIT Allergy & Immunology; ATTEND Allergy & Immunology
PROC: HZ2ZZZZ Detoxification Services for Substance Abuse Treatment (ICD-10-PCS; principal; 2020-11-11)
DX: F10.230 Alcohol dependence with withdrawal, uncomplicated (principal); F14.20 Cocaine dependence, uncomplicated; F17.210 Nicotine dependence, cigarettes, uncomplicated; H54.62 Unqualified visual loss, left eye, normal vision right eye; S82.891D Other fracture of right lower leg, subsequent encounter for closed fracture with routine healing; V49.9XXD Car occupant (driver) (passenger) injured in unspecified traffic accident, subsequent encounter; Z99.89 Dependence on other enabling machines and devices
CPT/HCPCS: 36415; 80053; 85027; 86780; 93005; 93010; C9803; U0003; U0005